=== PATIENT | male | born 1970 | race Caucasian/White ===

== ENCOUNTER 2020-10-20 16:16 | Emergency (ER) | payer MEDICAID ==
[~2020-10-20] VITALS: Ht 172.7 cm; Wt 75.7 kg
[2020-10-20 16:41] VITALS: BP 129/93
--- NOTE | 2020-10-20 20:07 | NUR ---
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
[2020-10-20] MEDS ORDERED: OXYcodone/APAP 10/325MG TABLET PO ONE (20:30)
[2020-10-20] MEDS ORDERED: OXYcodone/APAP 10/325MG TABLET ONE (20:30)
--- NOTE | 2020-10-20 20:58 | NUR ---
PT REPORTS PAIN IS BEGINNING TO IMPROVE. SLING IN PLACE. REPORT TO ROSEANNE DIETZ.
== END 2020-10-20 22:13 | disposition home or self-care (01) ==
LOC: ED 16:30
DX: S42.022A Displaced fracture of shaft of left clavicle, initial encounter for closed fracture (principal); S40.012A Contusion of left shoulder, initial encounter; W18.30XA Fall on same level, unspecified, initial encounter; Y93.89 Activity, other specified; Y92.410 Unspecified street and highway as the place of occurrence of the external cause; Y99.8 Other external cause status
CPT/HCPCS: 99283